=== PATIENT | male | born 1950 | race Caucasian/White ===

== ENCOUNTER → 2016-09-04 | Outpatient (CLI) | payer OTHER ==
[~2016-09-04] MED LIST: IOPAMIDOL (ISOVUE-300) 100 ML BTL IV ONE
== END ==
LOC: FIMAGING 11:52
DX: K92.2 Gastrointestinal hemorrhage, unspecified (principal); N40.0 Benign prostatic hyperplasia without lower urinary tract symptoms
CPT/HCPCS: Q9967

== ENCOUNTER 2016-11-15 07:11 | Inpatient (IN) | payer OTHER ==
--- NOTE | 2016-11-14 17:49 | GHP ---
[f rep st] PREOP HISTORY AND PHYSICAL DATE OF ADMISSION: 11/15/2016 CHIEF COMPLAINT: Small bowel tumor. HISTORY OF PRESENT ILLNESS: Mr. Cordoba is a 65-year-old male with a recent GI bleed secondary to a small bowel tumor while on warfarin for atrial fibrillation. He is off the warfarin and has no f urther bleeding episodes. EGD revealed no major abnormalities except for a very small hiatal hernia and mild esophagitis. Colonoscopy was negative except for some minor polyps. He is here for consu ltation for removal of the small bowel tumor seen on capsule endoscopy with ulceration which is his probable site of bleeding. PAST MEDICAL HISTORY: Atrial fibrillation formerly on warfarin, fibular fracture, hypercholesteremi a, hyperlipidemia, hypertension, mitral insufficiency, sleep apnea. PAST SURGICAL HISTORY: Knee surgery. MEDICATIONS: Bystolic, children's aspirin, Co Q10, Crestor, fish oil, Flonase, lisinopril, multivit santoyo, Zoloft and formerly warfarin. ALLERGIES: No known drug allergies. SOCIAL HISTORY: Patient is . He has 2 children. 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 He is a never smoker. REVIEW OF SYSTEMS: Full 10-point review of systems negative aside to his HPI. He is no longer in A Fib and does not smoke. PHYSICAL EXAMINATION: GENERAL: Reveals a healthy, alert 65-year-old male in no acute distress. HE ENT: Normocephalic, atraumatic. No adenopathy, scleral icterus or thyromegaly. CHEST: Clear to a uscultation with symmetric breath sounds. CARDIAC: Regular rate and rhythm without murmurs. ABDOM EN: Soft without organomegaly or masses. GENITALIA: Normal. EXTREMITIES: Full pulses, full rang e of motion. NEURO: Symmetrical and physiologic. PSYCH: Oriented and appropriate. 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 PLAN: Proceed with a laparoscopic, possible open small bowel resection. He does not need bridging since he has been off his Coumadin for over week. He is no longer in atrial fibrillation. Risks an d options have been discussed and he requests to proceed. History is per patient chart review and Marie Lange. Dr. Lange also saw and examined the patient. /[id number]/MODL
--- NOTE | 2016-11-15 06:52 | PDHPUP ---
History & Physical Update H&P update statement: This history and physical update is based on an assessment of the patient which was completed after admission or registration (within 24 hours), but prior to the surgery/procedure. H&P update: H&P reviewed & patient examined, no change in patient's condition since H&P completed
[~2016-11-15 07:11] MED LIST changes: -IOPAMIDOL (ISOVUE-300) 100 ML BTL IV ONE; +cefOXitin SODIUM 2 GM in D5W 100 ML IV ONE
[2016-11-15] MEDS ORDERED: ACETAMINOPHEN 325 MG TAB PO PRN (07:22)
[2016-11-15] MEDS ORDERED: HYDROmorphONE/DILAUDID 1 MG/ML SYR IVP PRN ×2 (07:22→11:37)
[2016-11-15] MEDS ORDERED: HYDROCODONE/APAP 5/325 TAB PO PRN ×2 (07:22→11:37)
--- NOTE | 2016-11-15 07:38 | PDANEPAE ---
ANE History of Present Illness lap assist small bowel resection ANE Past Medical History - Cardiovascular History Hx Hypertension: Yes Hx Arrhythmias: Yes Hx Chest Pain: No Hx Coronary Artery / Peripheral Vascular Disease: No Hx CHF / Valvular Disease: No Hx Palpitations: No - Pulmonary History Hx COPD: No Hx Asthma/Reactive Airway Disease: No Hx Recent Upper Respiratory Infection: No Hx Oxygen in Use at Home: No Hx Sleep Apnea: No Pulmonary History Comment: JAIRO uses bipap - Neurologic History Hx Cerebrovascular Accident: No Hx Seizures: No Hx Dementia: No - Endocrine History Hx Diabetes: No - Renal History Hx Renal Disorders: No - Liver History Hx Hepatic Disorders: No - Neurological & Psychiatric Hx Hx Neurological and Psychiatric Disorders: No - Cancer History Hx Cancer: No - Congenital Disorder History Hx Congenital Disorders: No - GI History Hx Gastrointestinal Disorders: No Gastrointestinal History Comment: GI BLEEDS. ACID RELFUX - "NOT CHRONIC BY ANY MEANS". COLON POLYPS - REMOVED AND BENIGN - Chronic Pain History Chronic Pain: No - Surgical History Prior Surgeries: CRYO ABLATION : 2013. RADIO ABLATION : 2006. ANGIOGRAM 2011 : CARDIOVERSION X4 : LAST ONE 2013 ANE Review of Systems Review of systems is: negative - Exercise capacity METS (RN): 5 METS ANE Patient History - Allergies Allergies/Adverse Reactions: No Known Allergies Allergy (Unverified 09/19/12 11:58) - Home Medications Home Medications: Multivitamins [Multivitamin (*)] 1 each PO DAILY 09/06/12 [Last Taken 11/12/16] Rosuvastatin Calcium [Crestor] 10 mg PO 09/06/12 [Last Taken 11/14/16 22:30] Fluticasone Nasal [Flonase Nasal [place]] 1 sprays EACHNARE DAILY 11/15/14 [Last Taken 11/15/16 05:00] Herbals/Supplements -Info Only 1 ea PO AD 11/15/14 [Last Taken 11/13/16] Lisinopril [Zestril 2.5 mg (*)] 2.5 mg PO DAILY 11/15/14 [Last Taken 11/14/16 08 :00] Nebivolol HCl [Bystolic] 2.5 mg PO HS 11/15/14 [Last Taken 11/14/16 22:30] Sertraline HCl [Zoloft 50mg (*)] 175 mg PO HS 11/15/14 [Last Taken 11/14/16 22: 30] - NPO status NPO Status: no food or drink >8 hours - Anes Hx Anes Hx: no prior problems - Smoking Hx Smoking Status: Never smoked - Family Anes Hx Family Anes Hx: none Family Hx Anesthesia Complications: N/A ANE Labs/Vital Signs - Labs Result Diagrams: 11/15/16 07:53 11/15/16 07:53 - Vital Signs Height: 187.96 cm Weight: 100.698 kg ANE Physical Exam - Airway Neck exam: FROM Mallampati Score: Class 1 Mouth exam: normal dental/mouth exam - Pulmonary Pulmonary: no respiratory distress - Cardiovascular Cardiovascular: regular rate and rhythym - ASA Status ASA Status: II ANE Anesthesia Plan Anesthesia Plan: general endotracheal anesthesia
[2016-11-15] MEDS ORDERED: LR 1,000 ML IV ONE (08:10)
[2016-11-15] MEDS ORDERED: LIDOCAINE 1% 2 ML INJ ID PRN (08:10)
[2016-11-15 08:25] LABS: % IMMATURE GRANULYOCYTES 0.3 % (0.0-1.1); ABSOLUTE IMMATURE GRANULOCYTES 0.02 10^3/uL (0.00-0.10); ADD DIFF? NO; ADD MORPH? NO; ADD SCAN? NO; ATYPICAL LYMPHOCYTE FLAG 0 (0-99); FRAGMENT RBC FLAG 0 (0-99); HEMOGLOBIN 17.8 g/dL (13.7-17.5); LEFT SHIFT FLG 0 (0-99); LIPEMIA HEMOLYSIS FLAG 90 (0-99); MEAN CELL HEMOGLOBIN 32.1 pg (27.9-34.1); MEAN CELL HEMOGLOBIN CONCENTR. 34.9 g/dL (32.4-36.7); MEAN CELL VOLUME 91.9 fL (81.5-99.8); MEAN PLATELET VOLUME 10.6 fL (8.7-11.7); PLATELET CLUMPS FLAG 0 (0-99); PLATELET COUNT 167 10^3/uL (150-400); RED BLOOD CELL COUNT 5.55 10^6/uL (4.40-6.38); RED CELL DISTRIBUTION WIDTH 12.7 % (11.5-15.2)
[2016-11-15 08:49] LABS: ANION GAP 12 mEq/L (8-16); CALCIUM 9.7 mg/dL (8.5-10.4); CARBON DIOXIDE 23 mEq/l (22-31); CHLORIDE 108 mEq/L (97-110); CREATININE 0.8 mg/dL (0.7-1.3); GLOMERULAR FILTRATION RATE > 60; GLUCOSE 86 mg/dL (70-100); POTASSIUM 4.3 mEq/L (3.5-5.2); SODIUM 143 mEq/L (134-144)
[2016-11-15 08:53] LABS: INR 1.07 (0.83-1.16); PROTIME(PATIENT) 13.8 SEC (12.0-15.0)
[2016-11-15] MEDS ORDERED: ROCURONIUM 50 MG/5 ML VIAL ONE ×2 (09:17→10:33)
[2016-11-15] MEDS ORDERED: DEXAMETHASONE 4 MG/ML VIAL ONE (09:17)
[2016-11-15] MEDS ORDERED: ONDANSETRON 4 MG/2 ML VIAL ONE (09:17)
[2016-11-15] MEDS ORDERED: SUGAMMADEX SODIUM 200 MG/2 ML VIAL IVP ONE (09:17)
[2016-11-15] MEDS ORDERED: PROPOFOL 200 MG/20 ML VIAL ONE (09:18)
[2016-11-15] MEDS ORDERED: LIDOCAINE 2% 5 ML SDV ONE (09:19)
[2016-11-15] MEDS ORDERED: fentaNYL 100 MCG/2 ML INJ ONE ×2 (09:21→12:22)
[2016-11-15] MEDS ORDERED: BUPIVACAINE 0.5% 30 ML SDV ONE (09:29)
[2016-11-15] MEDS ORDERED: THROMBIN(HUM PLAS)/FIBRINOG/CA 5 ML VIAL TP ONE (09:29)
[2016-11-15] MEDS ORDERED: ceFAZolin 1 GM/5 ML SYR ONE (09:29)
[2016-11-15] MEDS ORDERED: MIDAZOLAM 2 MG/2 ML VIAL ONE (09:53)
[2016-11-15] MEDS ORDERED: MIDAZOLAM 2 MG/2 ML VIAL IVP ONE (09:56)
[2016-11-15] MEDS ORDERED: HEPARIN 1000 UNIT/1 ML MDV ONE ×2 (10:19→10:20)
[2016-11-15] MEDS ORDERED: PHENYLEPHRINE HCL 100 MCG/ML SYR ONE (10:51)
[2016-11-15] MEDS ORDERED: NALOXONE HCL 0.4 MG/ML INJ IVP PRN ×2 (11:37→13:56)
[2016-11-15] MEDS ORDERED: PROMETHAZINE HCL 25 MG/ML INJ IVP PRN (11:37)
[2016-11-15] MEDS ORDERED: fentaNYL 100 MCG/2 ML INJ IVP PRN (11:37)
[2016-11-15] MEDS ORDERED: MEPERIDINE 25 MG/ML SYR IVP PRN (11:37)
[2016-11-15] MEDS ORDERED: ONDANSETRON 4 MG/2 ML VIAL IVP PRN (11:37)
[2016-11-15] MEDS ORDERED: ACETAMINOPHEN 500 MG TAB PO PRN (11:37)
[2016-11-15] MEDS ORDERED: OXYCODONE/APAP 5/325 TAB PO PRN (11:37)
[2016-11-15] MEDS ORDERED: DEXAMETHASONE 4 MG/ML VIAL IVP PRN (11:37)
--- NOTE | 2016-11-15 12:19 | POSTOPPROG ---
Post Op Note Date of Operation: 11/15/16 Surgeon: Lakhwinder Lange [employer] Manager: Calderon Leach Anesthesiologist: Dr Miranda Anesthesia: GET(General Endotracheal) Pre-op Diagnosis: small bowel mass Post-op Diagnosis: same, carcinoid on initial pathology Indication: History of GI bleed Procedure: laparoscopy, laparotomy, small bowel resection x 2 Findings: small bowel mass carcinoid, other mass hematoma Inf/Abcess present in the surg proc area at time of surgery?: No Depth: Organ Space EBL: 50-100
[2016-11-15] MEDS: D5W 1/2 NS 1,000 ML IV SCH ×2 (13:19→23:32)
[2016-11-15] MEDS: FLUTICASONE NASAL 120 SPRAYS/16 GM MDI EACHNARE SCH (13:37)
[2016-11-15] MEDS ORDERED: HYDROmorphONE/DILAUDID 6 MG/30 ML PCA IV PRN (13:56)
[2016-11-15] MEDS ORDERED: KETOROLAC 30 MG/1 ML SDV IVP ONE (14:00)
[2016-11-15] MEDS: KETOROLAC 15 MG/1 ML SDV IVP SCH ×2 (19:45→23:32)
[2016-11-15] MEDS ORDERED: NON-FORMULARY NEW DRUG (Nebivolol Hcl [Bystolic] 2.5 MG) PO SCH (21:00)
[2016-11-15] MEDS: NEBIVOLOL HCL 5 MG TAB PO SCH (21:14)
[2016-11-15] MEDS: ROSUVASTATIN CALCIUM 10 MG TAB PO SCH (21:14)
[2016-11-15] MEDS: SERTRALINE HCL 50 MG TAB PO SCH (21:14)
[2016-11-16 05:35] LABS: HEMATOCRIT 43.1 % (40.0-51.0); HEMOGLOBIN 14.6 g/dL (13.7-17.5)
[2016-11-16] MEDS: KETOROLAC 15 MG/1 ML SDV IVP SCH ×4 (05:37→23:53)
[2016-11-16 05:53] LABS: ANION GAP 8 mEq/L (8-16); CALCIUM 8.7 mg/dL (8.5-10.4); CARBON DIOXIDE 26 mEq/l (22-31); CHLORIDE 105 mEq/L (97-110); CREATININE 0.7 mg/dL (0.7-1.3); GLOMERULAR FILTRATION RATE > 60; GLUCOSE 109 mg/dL (70-100); POTASSIUM 4.5 mEq/L (3.5-5.2); SODIUM 139 mEq/L (134-144)
--- NOTE | 2016-11-16 07:59 | GOP ---
[f rep st] OPERATIVE REPORT DATE OF OPERATION: SURGEON: Lakhwinder Lange MD PREOPERATIVE DIAGNOSIS: Small bowel tumor. POSTOPERATIVE DIAGNOSIS: Carcinoid of the small bowel. PROCEDURE PERFORMED: Laparoscopy and laparotomy with resection of small bowel masses x2. FINDINGS: Patient was found to have a 1 cm carcinoid tumor of the mid jejunum, no other major lesio ns were seen. A separate small nodule was removed from the more proximal jejunum, but that appeared to be an intramural hematoma rather than an actual tumor and may have resulted from my manipulation of the bowel to try and find the other tumor, it is unclear. DESCRIPTION OF PROCEDURE: Patient was taken to the operating room where he received satisfactory ge neral endotracheal anesthesia by Dr. Miranda. Placed in supine position, prepped and draped in the usual sterile fashion. Left upper quadrant transverse stab incision was made. A Veress needle ins erted. Pneumoperitoneum was established. A trocar was introduced. Laparoscope introduced. Adequa te visualization was obtained. A 2nd trocar was placed in the left lower quadrant. The bowel was r un for its entirety, but no definite tumor could be visualized. The report said the tumor was 2 cm in size. We found nothing of that nature. A short periumbilical incision was then made and the bow el was again brought up through this incision and examined manually. Small area in the proximal jej unum was identified with a nodular feel to it. However, this appeared to be either a wall hematoma or hemangioma, but it was suspicious. That area was then excised with a full-thickness excision of the mass which was sent to Pathology and thought to be simply a wall hematoma. The area was closed with a running 3-0 Vicryl suture in a transverse manner with interrupted 3-0 Vicryl inverting suture s, while maintaining a good lumen in the small bowel. No other abnormalities could be found, howeve r, and it was felt that we needed to enlarge the incision for a better exploration. This was done g oing from a 3-1/2 inch incision to a 6 to 7 inch incision. This gave better exploration of the emperatriz l and we again ran the bowel multiple times from the ligament of Treitz to the ileocecal valve. We did happen to find a very small, less than 1 cm tumor, in the mid jejunum which appeared to be the c ulprit. No other masses could be identified on complete total inspection of the small bowel. This area was selected. A wedge excision was done of the bowel and the mesentery using the Harmonic Scal pel and a JUANITA stapler. The specimen was then sent to Pathology and confirmed to contain a carcinoid tumor. The mesentery was closed with a running 3-0 Vicryl suture. The bowel anastomosis was done with longitudinal application of the JUANITA stapler and a cross application of the stapler. We got goo d 3-fingerbreadth anastomosis. The staple line was then imbricated with a running 3-0 Vicryl suture and the suture line had been reinforced where necessary with interrupted 3-0 Vicryl sutures. The d istal end of the anastomosis was reinforced with interrupted 3-0 Vicryl sutures. The bowel was all returned to the abdomen. The wound was irrigated. The wound protector was removed. Gloves, drapes , and instruments were changed, and the wound was closed with a running #1 PDS suture for the linea alba. The wound was infiltrated with 0.5% Marcaine. Subcu was closed with Vicryl and the skin with a 4-0 Monocryl subcuticular stitch. The 2 trocar sites in the left side of the abdomen were closed with 4-0 Monocryl subcuticular sutures. All wounds were infiltrated from 0.5% Marcaine. He tolera jessica the procedure well, was taken to the recovery room in good condition. There were no complicatio ns. /[id number]/MODL
[2016-11-16] MEDS: D5W 1/2 NS 1,000 ML IV SCH ×2 (09:29→19:02)
[2016-11-16] MEDS: FLUTICASONE NASAL 120 SPRAYS/16 GM MDI EACHNARE SCH (11:14)
[2016-11-16] MEDS: SERTRALINE HCL 50 MG TAB PO SCH (21:23)
[2016-11-16] MEDS: ROSUVASTATIN CALCIUM 10 MG TAB PO SCH (21:24)
[2016-11-16] MEDS: NEBIVOLOL HCL 5 MG TAB PO SCH (21:25)
[2016-11-17] MEDS: KETOROLAC 15 MG/1 ML SDV IVP SCH ×3 (06:04→18:18)
[2016-11-17] MEDS: OXYCODONE/APAP 5/325 TAB PO PRN ×2 (08:07→20:50)
[2016-11-17] MEDS: FLUTICASONE NASAL 120 SPRAYS/16 GM MDI EACHNARE SCH (08:10)
[2016-11-17] MEDS ORDERED: CEPACOL LOZENGE PO PRN (08:27)
--- NOTE | 2016-11-17 09:08 | SOAPPROG ---
SOAP Progress Note Assessment/Plan: Assessment/Plan: 65 Y M s/p laparotomy, SBR for carcinoid tumor. POD#2. Inflamed uvula. Throat culture, cepacol lozenges, popsicles, shower steam vs mist therapy. Causing some gag reflex, but can swallow, and denies airway compromise. Ileus. Improved. Small BM yesterday. Advance diet. Wounds. CDI. Hypertension. Restart home lisinopril. Continue pain control and routine PO care. S: Not much pain. C/o enlarged uvula. +passing gas. No n/v. small BM yesterday. O: alert, nad, sitting OOB in chair uvula erythematous, swollen, tonsils ok, tiny spots of white exudate ctab rrr abd soft, inc cdi, good bowel sounds 11/17/16 09:03 Objective: Vital Signs Temp Pulse Resp BP Pulse Ox 36.9 C 70 16 145/90 H 93 11/17/16 07:10 11/17/16 07:10 11/17/16 07:10 11/17/16 07:10 11/17/16 07:10 Laboratory Results 11/16/16 05:14 11/16/16 05:14 11/16/16 11/17/16 11/18/16 05:59 05:59 05:59 Intake Total 3546 1400 Output Total 450 2450 550 Balance 3096 -1050 -550 PT 13.8 SEC (12.0-15.0) 11/15/16 07:53 INR 1.07 (0.83-1.16) 11/15/16 07:53 ICD10 Worksheet Patient Problems: Problems Problem Status Onset Atrial fibrillation and flutter Acute
[2016-11-17] MEDS: LISINOPRIL 2.5 MG TAB PO SCH (09:50)
[2016-11-17] MEDS: SERTRALINE HCL 50 MG TAB PO SCH (20:48)
[2016-11-17] MEDS: ROSUVASTATIN CALCIUM 10 MG TAB PO SCH (20:48)
[2016-11-17] MEDS: NEBIVOLOL HCL 5 MG TAB PO SCH (20:49)
[2016-11-18] MEDS: KETOROLAC 15 MG/1 ML SDV IVP SCH ×3 (01:27→11:47)
[2016-11-18] MEDS: LISINOPRIL 2.5 MG TAB PO SCH (08:10)
[2016-11-18] MEDS: FLUTICASONE NASAL 120 SPRAYS/16 GM MDI EACHNARE SCH (08:11)
[2016-11-18 08:19] VITALS: BP 123/85; PULSE 64; RESP 14; TEMP 98; O2SAT 94
--- NOTE | 2016-11-18 10:00 | SOAPPROG ---
SOAP Progress Note Assessment/Plan: Assessment/Plan: 65 Y M s/p laparotomy, SBR for carcinoid tumor. POD#3. Doing well. D/c to home today. S: Uvula still "annoying" but better. Eating. +BM. O: alert, nad, sitting OOB in chair in street clothes uvula still red, less swollen, no exudates ctab rrr abd soft, inc with 1.5 cm x 0.5 cm superficial opening--dressed with band aid, no erythema, good bowel sounds 11/18/16 09:57 Objective: Vital Signs Temp Pulse Resp BP Pulse Ox 36.7 C 64 14 123/85 H 94 11/18/16 08:00 11/18/16 08:00 11/18/16 08:00 11/18/16 08:00 11/18/16 08:00 Microbiology 11/17/16 09:50 Gram Stain - Final Throat - Swab Laboratory Results 11/16/16 05:14 11/16/16 05:14 11/17/16 11/18/16 11/19/16 05:59 05:59 05:59 Intake Total 1400 Output Total 2450 2100 Balance -1050 -2100 PT 13.8 SEC (12.0-15.0) 11/15/16 07:53 INR 1.07 (0.83-1.16) 11/15/16 07:53 ICD10 Worksheet Patient Problems: Problems Problem Status Onset Atrial fibrillation and flutter Acute
[2016-11-18] MEDS: OXYCODONE/APAP 5/325 TAB PO PRN (11:06)
--- NOTE | 2016-11-18 19:00 | GDS ---
[f rep st] DISCHARGE SUMMARY DISCHARGE DIAGNOSES: 1. Carcinoid tumor of the small bowel. 2. Uvulitis. OTHER DIAGNOSES: 1. History of atrial fibrillation, formerly on warfarin. 2. Hypercholesteremia. 3. Hyperlipidemia. 4. Hypertension. 5. Mitral insufficiency. 6. Sleep apnea. 7. History of fibular fracture and knee surgery. PROCEDURES: Laparoscopy and laparotomy with resection of small bowel masses x2, with Dr. Lakhwinder alvarez. INTRAOPERATIVE FINDINGS: Patient was found to have a 1 cm likely carcinoid tumor of the mid jejunum with no other major lesions seen. A separate nodule was removed from the more proximal jejunum; ho wever, this appeared to be an intramural hematoma. Final pathology is pending at the time of discha rge. CONSULTATIONS: None. HOSPITAL COURSE: The patient is a 66-year-old male, who underwent the above procedure for a small b owel tumor. The procedure was uncomplicated, and he tolerated it well. The patient's postoperative course was relatively uneventful. His bowel function returned, and his diet was advanced. His pain was controlled. He did complain of some swelling of his uvula, which c aused mild gag reflex. He was able to swallow and eat well, and denied any airway compromise. It w as thought this may be secondary to intubation or suction during anesthesia. Throat cultures were o btained with no growth at the time of discharge. It improved, but had not resolved on the day of di shubhamrargentina. DISCHARGE INSTRUCTIONS: Patient was discharged to home in stable condition with a prescription for Dilaudid to be used as needed for pain control. Limitations were discussed. The patient may use ov [id number] Advil per label. He will follow up in our office in 1-2 weeks or sooner if he has pr oblems or concerns. /[id number]/MODL
== END 2016-11-18 12:05 | disposition home or self-care (01) | DRG 345 ==
LOC: F3N 07:11 → F3E 11:40
PROVIDERS: ADMIT Surgery; ATTEND Surgery
PROC: 0DJD4ZZ Inspection of Lower Intestinal Tract, Percutaneous Endoscopic Approach (ICD-10-PCS; principal; 2016-11-15 09:00)
PROC: 0DBA0ZX Excision of Jejunum, Open Approach, Diagnostic (ICD-10-PCS; principal; 2016-11-15 09:00)
DX: C17.1 Malignant neoplasm of jejunum (principal); K63.89 Other specified diseases of intestine; Z53.31 Laparoscopic surgical procedure converted to open procedure; K56.7 Ileus, unspecified; I48.91 Unspecified atrial fibrillation; I10 Essential (primary) hypertension; G47.33 Obstructive sleep apnea (adult) (pediatric); Z79.01 Long term (current) use of anticoagulants; I34.0 Nonrheumatic mitral (valve) insufficiency
CPT/HCPCS: J0694; J1100; J1170; J1885; J2250; J2370; J2405; J2704; J3010

== ENCOUNTER 2016-12-03 07:26 | Inpatient (IN) | payer OTHER ==
[2016-12-03] MEDS ORDERED: ONDANSETRON 4 MG/2 ML VIAL IVP ONE (07:43)
[2016-12-03] MEDS ORDERED: NS 1,000 ML IV ONE (07:43)
[2016-12-03] MEDS ORDERED: HYDROmorphONE/DILAUDID 1 MG/ML SYR IVP ONE (07:43)
--- NOTE | 2016-12-03 07:47 | EDPHY ---
H & P Stated Complaint: ? sm bowel obstruction/surgery 2 wks ago carcinoid tumor in bowel Time Seen by Provider: 12/03/16 07:36 HPI/ROS: CHIEF COMPLAINT: Abdominal pain HISTORY OF PRESENT ILLNESS: The patient is a 66-year-old man who was 3 weeks status post carcinoid tumor small-bowel resection with Dr. Cresencio Lange. He was discharged on the and readmitted on the In [place] with a small bowel obstruction that resolved after 2 days with an NG tube. He followed up with Dr. Lange 3 days ago and was doing well. Last night he began having abdominal pain and bloating again. This morning he has not had any flatus his pain is worsening. He has vomited twice. Nonbloody. He is concerned about another obstruction. Dr. Lange called and requested workup and likely admission for laparoscopy. He does have a history of AFib but is status post ablation and no longer on blood thinners. REVIEW OF SYSTEMS: Constitutional: denies: chills, fever, recent illness, recent injury EENTM: denies: blurred vision, double vision, nose congestion Respiratory: denies: cough, shortness of breath Cardiac: denies: chest pain, irregular heart rate, lightheadedness, palpitations Gastrointestinal/Abdominal: See HPI Genitourinary: denies: dysuria, frequency, hematuria, pain Musculoskeletal: denies: joint pain, muscle pain Skin: denies: lesions, rash, jaundice, bruising Neurological: denies: headache, numbness, paresthesia, tingling, dizziness, weakness Hematologic/Lymphatic: denies: blood clots, easy bleeding, easy bruising Immunologic/allergic: denies: HIV/AIDS, transplant EXAM: GENERAL: Well-appearing, well-nourished and in no acute distress. HEAD: Atraumatic, normocephalic. EYES: Pupils equal round and reactive to light, extraocular movements intact, sclera anicteric, conjunctiva are normal. ENT: TMs normal, nares patent, oropharynx clear without exudates. Moist mucous membranes. NECK: Normal range of motion, supple without lymphadenopathy or JVD. LUNGS: Breath sounds clear to auscultation bilaterally and equal. No wheezes rales or rhonchi. HEART: Regular rate and rhythm without murmurs, rubs or gallops. ABDOMEN: Slightly distended, nontender BACK: No CVA tenderness, no spinal tenderness, step-offs or deformities EXTREMITIES: Normal range of motion, no pitting or edema. No clubbing or cyanosis. NEUROLOGICAL: Cranial nerves II through XII grossly intact. Normal speech, normal gait. 5/5 strength, normal movement in all extremities, normal sensation PSYCH: Normal mood, normal affect. SKIN: Warm, dry, normal turgor, no visible rashes or lesions. Source: Patient Exam Limitations: No limitations - Personal History Current Tetanus/Diphtheria Vaccine: Yes Tetanus Vaccine Date: unsure - Medical/Surgical History Hx Asthma: No Hx Chronic Respiratory Disease: No Hx Diabetes: No Hx Cardiac Disease: No Hx Renal Disease: No Hx Cirrhosis: No Hx Alcoholism: No Hx HIV/AIDS: No Hx Splenectomy or Spleen Trauma: No Other PMH: HTN, AFIB (previous ablation), high cholesterol, sleep apnea, bipap at night, depression/anxiety, knee scope, GI bleed secondary to small intestine tumor - Family History Significant Family History: No pertinent family hx - Social History Smoking Status: Never smoked Alcohol Use: Sober Drug Use: None Constitutional: Initial Vital Signs Temperature (C) 36.7 C 12/03/16 07:31 Heart Rate 82 12/03/16 07:31 Respiratory Rate 18 12/03/16 07:31 Blood Pressure 84/67 L 12/03/16 07:31 O2 Sat (%) 97 12/03/16 07:31 O2 Delivery Mode Nasal Cannula O2 (L/minute) 2 Allergies/Adverse Reactions: No Known Allergies Allergy (Verified 12/03/16 07:27) Home Medications: Medication Instructions Recorded Multivitamins [Multivitamin (*)] 1 each PO DAILY 09/06/12 Rosuvastatin Calcium [Crestor] 10 mg PO HS 09/06/12 Fluticasone Nasal [Flonase Nasal 1 sprays EACHNARE DAILY 11/15/14 [place]] Herbals/Supplements -Info Only 1 ea PO AD 11/15/14 Lisinopril [Zestril 2.5 mg (*)] 2.5 mg PO DAILY 11/15/14 Nebivolol HCl [Bystolic] 2.5 mg PO HS 11/15/14 Sertraline HCl [Zoloft 50mg (*)] 175 mg PO HS 11/15/14 Ondansetron Odt [Zofran Odt 4 mg 4 mg PO DAILY PRN 12/03/16 (*)] Medical Decision Making - Diagnostics Imaging Results: Imaging Impressions Abdomen CT 12/03/16 07:43 Impression: 1. Mild dilatation and thickening of proximal small bowel loops in distribution suggestive of mild ileus. There is no focal point of obstruction. 2. No CT evidence of appendicitis, abscess or bowel obstruction. 3. Degenerative disk disease mid to lower lumbar spine with associated mild levoscoliosis and right-sided neuroforaminal stenoses. 4. Bowel anastomotic sutures right lower abdomen to upper pelvis related to small bowel in recent focal resection. A few air bubbles are also seen in the anterior abdomen related to recent surgery. Findings discussed with Austin Montes M.D. at 10:15 hour, 12/03/2016. Imaging: Discussed imaging studies w/ floor associate Radiologist ED Course/Re-evaluation: 10:30 a.m. we discussed the patient's CT and lab results. His white blood cell count is mildly elevated compared to previously. His abdominal exam remains benign. He is still not had any gas or bowel movements. He has not vomited since arriving. I recommended admission and Dr. Lange agrees for observation. Differential Diagnosis: Partial list of the Differential diagnosis considered include but were not limited to; bowel obstruction, ileus, ischemia, volvulus, dehiscence and although unlikely based on the history and physical exam, I also considered sepsis, pneumonia. - Data Points Laboratory Results: Laboratory Results 12/03/16 08:05 12/03/16 08:05 12/03/16 12/03/16 12/03/16 08:05 08:05 08:05 WBC 11.93 10^3/uL H 10^3/uL (3.80-9.50) RBC 5.42 10^6/uL 10^6/uL (4.40-6.38) Hgb 17.2 g/dL g/dL (13.7-17.5) Hct 48.4 % % (40.0-51.0) MCV 89.3 fL fL (81.5-99.8) MCH 31.7 pg pg (27.9-34.1) MCHC 35.5 g/dL g/dL (32.4-36.7) RDW 12.7 % % (11.5-15.2) Plt Count 268 10^3/uL 10^3/uL (150-400) MPV 10.1 fL fL (8.7-11.7) Neut % (Auto) 83.0 % H % (39.3-74.2) Lymph % (Auto) 9.9 % L % (15.0-45.0) Mckean % (Auto) 5.3 % % (4.5-13.0) Eos % (Auto) 0.8 % % (0.6-7.6) Baso % (Auto) 0.4 % % (0.3-1.7) Nucleat RBC Rel Count 0.0 % % (0.0-0.2) Absolute Neuts (auto) 9.91 10^3/uL H 10^3/uL (1.70-6.50) Absolute Lymphs (auto) 1.18 10^3/uL 10^3/uL (1.00-3.00) Absolute Monos (auto) 0.63 10^3/uL 10^3/uL (0.30-0.80) Absolute Eos (auto) 0.09 10^3/uL 10^3/uL (0.03-0.40) Absolute Basos (auto) 0.05 10^3/uL 10^3/uL (0.02-0.10) Absolute Nucleated RBC 0.00 10^3/uL 10^3/uL (0-0.01) Immature Gran % 0.6 % % (0.0-1.1) Immature Gran # 0.07 10^3/uL 10^3/uL (0.00-0.10) PT 13.0 SEC SEC (12.0-15.0) INR 0.99 (0.83-1.16) APTT 23.9 SEC SEC (23.0-38.0) VBG Lactic Acid Sodium 143 mEq/L mEq/L (134-144) Potassium 4.4 mEq/L mEq/L (3.5-5.2) Chloride 105 mEq/L mEq/L (97-110) Carbon Dioxide 22 mEq/l mEq/l (22-31) Anion Gap 16 mEq/L mEq/L (8-16) BUN 24 mg/dL H mg/dL (7-23) Creatinine 1.0 mg/dL mg/dL (0.7-1.3) Estimated GFR > 60 Glucose 111 mg/dL H mg/dL (70-100) Calcium 10.4 mg/dL mg/dL (8.5-10.4) Total Bilirubin 0.6 mg/dL mg/dL (0.1-1.4) Conjugated Bilirubin 0.3 mg/dL mg/dL (0.0-0.5) Unconjugated Bilirubin 0.3 mg/dL mg/dL (0.0-1.1) AST 29 IU/L IU/L (17-59) ALT 42 IU/L IU/L (21-72) Alkaline Phosphatase 70 IU/L IU/L (38-126) Total Protein 7.6 g/dL g/dL (6.3-8.2) Albumin 4.6 g/dL g/dL (3.5-5.0) Lipase 90.0 IU/L IU/L (23-300) 12/03/16 08:05 WBC RBC Hgb Hct MCV MCH MCHC RDW Plt Count MPV Neut % (Auto) Lymph % (Auto) Mckean % (Auto) Eos % (Auto) Baso % (Auto) Nucleat RBC Rel Count Absolute Neuts (auto) Absolute Lymphs (auto) Absolute Monos (auto) Absolute Eos (auto) Absolute Basos (auto) Absolute Nucleated RBC Immature Gran % Immature Gran # PT INR APTT VBG Lactic Acid 1.4 mmol/L mmol/L (0.7-2.1) Sodium Potassium Chloride Carbon Dioxide Anion Gap BUN Creatinine Estimated GFR Glucose Calcium Total Bilirubin Conjugated Bilirubin Unconjugated Bilirubin AST ALT Alkaline Phosphatase Total Protein Albumin Lipase Medications Given: Discontinued Medications Hydromorphone HCl (Dilaudid) 0.5 mg IVP EDNOW ONE Stop: 12/03/16 07:44 Last Admin: 12/03/16 08:09 Dose: 0.5 mg Sodium Chloride (Ns) 1,000 mls @ 0 mls/hr IV EDNOW ONE; Wide Open PRN Reason: Protocol Stop: 12/03/16 07:44 Last Admin: 12/03/16 08:09 Dose: 1,000 mls Ondansetron HCl (Zofran) 4 mg IVP EDNOW ONE Stop: 12/03/16 07:44 Last Admin: 12/03/16 08:09 Dose: 4 mg Departure - Departure Disposition: [facility] Inpatient Acute Clinical Impression: Ileus, unspecified Condition: Fair
[2016-12-03 08:19] LABS: % IMMATURE GRANULYOCYTES 0.6 % (0.0-1.1); ABSOLUTE IMMATURE GRANULOCYTES 0.07 10^3/uL (0.00-0.10); ADD DIFF? NO; ADD MORPH? NO; ADD SCAN? NO; ATYPICAL LYMPHOCYTE FLAG 0 (0-99); FRAGMENT RBC FLAG 0 (0-99); HEMATOCRIT 48.4 % (40.0-51.0); HEMOGLOBIN 17.2 g/dL (13.7-17.5); LEFT SHIFT FLG 10 (0-99); LIPEMIA HEMOLYSIS FLAG 90 (0-99); MEAN CELL HEMOGLOBIN 31.7 pg (27.9-34.1); MEAN CELL HEMOGLOBIN CONCENTR. 35.5 g/dL (32.4-36.7); MEAN CELL VOLUME 89.3 fL (81.5-99.8); MEAN PLATELET VOLUME 10.1 fL (8.7-11.7); PLATELET CLUMPS FLAG 0 (0-99); PLATELET COUNT 268 10^3/uL (150-400); RED BLOOD CELL COUNT 5.42 10^6/uL (4.40-6.38); RED CELL DISTRIBUTION WIDTH 12.7 % (11.5-15.2)
[2016-12-03 08:25] LABS: APTT 23.9 SEC (23.0-38.0); INR 0.99 (0.83-1.16)
[2016-12-03 08:33] LABS: ALANINE AMINOTRANSFERASE 42 IU/L (21-72); ALBUMIN 4.6 g/dL (3.5-5.0); ALKALINE PHOSPHATASE 70 IU/L (38-126); ANION GAP 16 mEq/L (8-16); ASPARTATE AMINOTRANSFERASE 29 IU/L (17-59); BILIRUBIN,TOTAL 0.6 mg/dL (0.1-1.4); BILIRUBIN-CONJUGATED 0.3 mg/dL (0.0-0.5); BILIRUBIN-UNCONJUGATED 0.3 mg/dL (0.0-1.1); CALCIUM 10.4 mg/dL (8.5-10.4); CARBON DIOXIDE 22 mEq/l (22-31); CHLORIDE 105 mEq/L (97-110); GLOMERULAR FILTRATION RATE > 60; GLUCOSE 111 mg/dL (70-100); POTASSIUM 4.4 mEq/L (3.5-5.2); SODIUM 143 mEq/L (134-144); TOTAL PROTEIN 7.6 g/dL (6.3-8.2)
[2016-12-03] MEDS ORDERED: IOPAMIDOL (ISOVUE-300) 100 ML BTL ONE (08:51)
[2016-12-03] MEDS ORDERED: HYDROmorphONE/DILAUDID 1 MG/ML SYR IVP PRN (12:39)
[2016-12-03] MEDS ORDERED: ONDANSETRON 4 MG/2 ML VIAL IVP PRN (12:39)
[2016-12-03] MEDS ORDERED: NS W/ 20 KCl/L 1,000 ML IV SCH (12:45)
--- NOTE | 2016-12-03 14:21 | SOAPPROG ---
SOAUTUMN Progress Note Assessment/Plan: Assessment: 66 MALE STATUS POST CARCINOID RESECTION OF SMALL BOWEL/ADMIT WITH SYMPTOMS OF PARTIAL SMALL BOWEL OBSTRUCTION WHICH IS RECURRENT/ NO BM TODAY OR FLATUS AT PRESENT NO EMESIS OR PAIN AND NO DISTENSION CT SCAN NON DIAGNOSTIC/ ABDOMEN IS SOFT NONTENDER WITH WELL-HEALING INCISION AND POSITIVE BOWEL SOUNDS Plan: SMALL-BOWEL FOLLOW-THROUGH/FOLLOW-UP AMYLASE/ADMIT FOR IV FLUIDS AND NPO 12/03/16 14:19 Objective: Vital Signs Temp Pulse Resp BP Pulse Ox 36.7 C 78 16 110/76 95 12/03/16 12:53 12/03/16 12:53 12/03/16 12:53 12/03/16 12:53 12/03/16 12:53 12/02/16 12/03/16 12/04/16 05:59 05:59 05:59 Intake Total 1050 Balance 1050 PT 13.0 SEC (12.0-15.0) 12/03/16 08:05 INR 0.99 (0.83-1.16) 12/03/16 08:05 ICD10 Worksheet Patient Problems: Problems Problem Status Onset Ileus, unspecified Acute Atrial fibrillation and flutter Acute
[2016-12-03 15:10] LABS: COLOR YELLOW; LEUKOCYTE ESTERASE,URINE NEGATIVE (NEGATIVE); MUCUS TRACE /lpf (NONE-1+); NITRITE,URINE NEGATIVE (NEGATIVE)
[2016-12-03] MEDS: D5W 1/2 NS W/ 20 KCl/L 1,000 ML IV SCH ×2 (16:39→23:49)
[2016-12-03] MEDS: SERTRALINE HCL 50 MG TAB PO SCH (20:34)
[2016-12-03] MEDS: ROSUVASTATIN CALCIUM 10 MG TAB PO SCH (20:35)
[2016-12-03] MEDS: NEBIVOLOL HCL 5 MG TAB PO SCH (20:35)
[2016-12-03] MEDS: FAMOTIDINE 20 MG/NACL 50 ML IV SCH (20:36)
[2016-12-04 05:32] LABS: AMYLASE 41 IU/L (30-110)
--- NOTE | 2016-12-04 09:47 | SOAPPROG ---
SOAP Progress Note Assessment/Plan: Assessment/Plan: 66 Y M recent hx SBR for carcinoid tumor recurrent SBO symptoms. SBFT shows good passage of contrast with focal abnormal appearance of small bowel with thickened wall. Tolerating clears now. AXR today. Dispo: pending. Could advance diet if does well, but due to recurrent nature of problem exploratory surgery is still a possibility. S: passing gas and contrast. no more pain. no more n/v. O: alert, nad mmm ctab rrr abd soft, inc cdi, +BS 12/04/16 09:44 Objective: Vital Signs Temp Pulse Resp BP Pulse Ox 36.8 C 74 18 115/70 92 12/04/16 07:48 12/04/16 07:48 12/04/16 07:48 12/04/16 07:48 12/04/16 07:48 12/03/16 12/04/16 12/05/16 05:59 05:59 05:59 Intake Total 2835 Output Total 350 Balance 2485 PT 13.0 SEC (12.0-15.0) 12/03/16 08:05 INR 0.99 (0.83-1.16) 12/03/16 08:05 ICD10 Worksheet Patient Problems: Problems Problem Status Onset Ileus, unspecified Acute Atrial fibrillation and flutter Acute
[2016-12-04] MEDS: FLUTICASONE NASAL 120 SPRAYS/16 GM MDI EACHNARE SCH (10:03)
[2016-12-04] MEDS: LISINOPRIL 2.5 MG TAB PO SCH (10:04)
[2016-12-04] MEDS: FAMOTIDINE 20 MG/NACL 50 ML IV SCH ×2 (10:04→20:28)
[2016-12-04] MEDS: D5W 1/2 NS W/ 20 KCl/L 1,000 ML IV SCH (11:06)
[2016-12-04] MEDS ORDERED: D50W 25 GM/50 ML SYR IVP ONE (14:25)
[2016-12-04] MEDS ORDERED: MEROPENEM 1 GM in NS 100 ML IV SCH ×2 (14:45→22:00)
[2016-12-04] MEDS ORDERED: D10W 250 ML ONCE IV ONE (15:00)
[2016-12-04] MEDS ORDERED: ACETAMINOPHEN 325 MG TAB PO PRN (17:08)
[2016-12-04] MEDS: SERTRALINE HCL 50 MG TAB PO SCH (20:28)
[2016-12-04] MEDS: NEBIVOLOL HCL 5 MG TAB PO SCH (20:29)
[2016-12-04] MEDS: ROSUVASTATIN CALCIUM 10 MG TAB PO SCH (20:31)
[2016-12-04 23:42] VITALS: RESP 18
[2016-12-05 05:16] LABS: AMYLASE 39 IU/L (30-110)
[2016-12-05 08:00] VITALS: BP 104/76; PULSE 79; TEMP 98.9; O2SAT 93
[2016-12-05] MEDS: FAMOTIDINE 20 MG/NACL 50 ML IV SCH (09:17)
[2016-12-05] MEDS: LISINOPRIL 2.5 MG TAB PO SCH (09:17)
[2016-12-05] MEDS: FLUTICASONE NASAL 120 SPRAYS/16 GM MDI EACHNARE SCH (09:18)
--- NOTE | 2016-12-05 10:44 | SOAPPROG ---
SOAP Progress Note Assessment/Plan: Assessment: 66 yo M with a recent history of SBR for carcinoid tumor presenting with recurrent SBO symptoms. SBFT yesterday showed good passage of contrast with focal abnormal appearance of small bowel with thickened wall. Abdominal XR today shows normalized small bowel pattern and no residual ileus or obstruction. S: Patient tolerating diet. Minor nausea this morning that resolved with eating. Passing gas and contrast. Denies vomiting, fever/chills, SOB, abdominal pain. Patient ambulating. Patient eager to go home today. O: Awake, alert, NAD MMM Bowel sounds present, abd soft, previous incision C/D/I Plan: Dispo to home today if tolerates lunch without N/V. Patient aware to return to hospital if he experiences recurrent SBO symptoms. 12/05/16 10:37 Objective: Vital Signs Temp Pulse Resp BP Pulse Ox 37.2 C 79 18 104/76 93 12/05/16 07:59 12/05/16 07:59 12/05/16 07:59 12/05/16 07:59 12/05/16 07:59 12/04/16 12/05/16 12/06/16 05:59 05:59 05:59 Intake Total 400 Output Total 1975 Balance -1575 PT 13.0 SEC (12.0-15.0) 12/03/16 08:05 INR 0.99 (0.83-1.16) 12/03/16 08:05 ICD10 Worksheet Patient Problems: Problems Problem Status Onset Ileus, unspecified Acute Atrial fibrillation and flutter Acute
== END 2016-12-05 11:30 | disposition home or self-care (01) | DRG 390 ==
LOC: F3E 11:52 → OBSVTOIN 12-04 14:10
PROVIDERS: ADMIT Surgery; ATTEND Surgery
DX: K56.60 Unspecified intestinal obstruction (principal); I10 Essential (primary) hypertension; I48.91 Unspecified atrial fibrillation; E78.00 Pure hypercholesterolemia, unspecified; G47.33 Obstructive sleep apnea (adult) (pediatric); F41.8 Other specified anxiety disorders
CPT/HCPCS: 96374; G0378; J1170; J2185; J2405; Q9967

== ENCOUNTER → 2017-07-11 | Outpatient (CLI) | payer OTHER | LOC: BHFA 09:15 | PROVIDERS: ATTEND Internal Medicine Cardiovascular Disease | DX: I48.91 Unspecified atrial fibrillation (principal) ==

== ENCOUNTER → 2018-07-10 | Outpatient (CLI) | payer OTHER | LOC: BHFA 10:00 | PROVIDERS: ATTEND Internal Medicine Cardiovascular Disease | DX: I47.2 Ventricular tachycardia (principal); I48.91 Unspecified atrial fibrillation ==

== ENCOUNTER → 2018-07-22 | Outpatient (CLI) | payer OTHER | LOC: BHFA 13:30 | PROVIDERS: ATTEND Internal Medicine Cardiovascular Disease | DX: R94.30 Abnormal result of cardiovascular function study, unspecified (principal) | CPT/HCPCS: 78452; 93017; A9500; J2785 ==